=== PATIENT | female | born 1975 | race Caucasian/White ===

== ENCOUNTER 2017-02-13 11:32 | Emergency (ER) | payer MEDICAID | END 2017-02-13 13:30 | disposition home or self-care (01) | LOC: D.ER 11:32 | DX: S93.601A Unspecified sprain of right foot, initial encounter (principal); V89.2XXA Person injured in unspecified motor-vehicle accident, traffic, initial encounter; Y93.89 Activity, other specified; Y92.410 Unspecified street and highway as the place of occurrence of the external cause ==

== ENCOUNTER 2017-07-19 13:32 | Emergency (ER) | payer MEDICAID | END 2017-07-19 16:47 | disposition left against medical advice (07) | LOC: D.ER 13:32 | DX: R42 Dizziness and giddiness (principal) ==